=== PATIENT | male | born 1990 | race Caucasian/White ===

== ENCOUNTER 2018-05-19 15:13 | Emergency (ER) | payer SELFPAY ==
[~2018-05-19] VITALS: Ht 185.4 cm; Wt 111.1 kg
[~2018-05-19 15:13] MED LIST: ABAC300; ALBU90OI INH; BENZ2 PO; CLON2 PO; CLOZ100 PO; DIVA250ER PO; DIVA500EC PO; DOCU100 PO; Flomax0.4 MG PO; HALO5 PO; METO25ER PO; OLAN10 PO; OLAN20 MM; OLAN5 PO; Percocet 5-3251 EACH PO; TRAZ100 PO; TRAZ50 PO; Zofran Odt4 MG SL; Zyprexa10 MG PO
== END 2018-05-19 15:50 | disposition home or self-care (01) ==
LOC: ER 15:13
DX: S93.402A Sprain of unspecified ligament of left ankle, initial encounter (principal); J45.909 Unspecified asthma, uncomplicated; F31.9 Bipolar disorder, unspecified; F20.9 Schizophrenia, unspecified; F17.200 Nicotine dependence, unspecified, uncomplicated; Z88.8 Allergy status to other drugs, medicaments and biological substances; Z79.899 Other long term (current) drug therapy; X58.XXXA Exposure to other specified factors, initial encounter
CPT/HCPCS: 73610; 99283-25